=== PATIENT | female | born 2005 | race Caucasian/White ===

== ENCOUNTER → 2024-10-17 | Outpatient (CLI) | payer MEDICAID ==
--- NOTE | 2024-10-17 12:26 | RADIOLOGY REPORT ---
INDICATION: ELEVATED LIVER ENZYMES TECHNIQUE: Multiple real-time sonographic images of the abdomen were obtained. COMPARISON: None FINDINGS: The liver is homogenous in echogenicity. The liver measures 15cm. No intrahepatic biliary ductal dilatation is noted. The gallbladder wall measures 0.2 cm and is unremarkable. No gallstones or sludge is seen. The commo n duct measures 0.2 cm and is unremarkable. No pericholecystic fluid is noted. The right kidney measures 10cm. No hydronephrosis. The pancreas is not well visualized due to obscuration from bowel gas. The visualized portions of the IVC and aorta are grossly unremarkable. IMPRESSION: Normal exam of the abdomen.
== END | disposition home or self-care (01) ==
LOC: US 08:50
PROVIDERS: ATTEND Nurse Practitioner
DX: R74.8 Abnormal levels of other serum enzymes (principal)
CPT/HCPCS: 76700